=== PATIENT | male | born 1940 | race Caucasian/White ===

== ENCOUNTER 2022-02-26 11:24 | Inpatient (IN) ==
[~2022-02-26 11:24] MED LIST: Buffered Lidocaine 1% SYRIN 1 ml INTRADERM ONE; HYDROmorphone 1 MG/1 ML SYRINGE IV PRN; Lactated Ringers 1000 ml BAG 1,000 ML IV SCH; Naloxone 0.4 mg VIAL 0.4 mg/ml 1 ml VIAL IV PRN; Prochlorperazine 5 mg/ml 2 ml VIAL (10 mg) IV PRN
[2022-02-26] MEDS ORDERED: ceFAZolin 2 GM PREMIX 2 GM/50 ML BAG ONE (12:28)
[2022-02-26] MEDS ORDERED: ceFAZolin 1 GM in Dextrose 1 GM/50 ML BAG ONE (12:28)
[2022-02-26] MEDS ORDERED: Midazolam 2 mg/2 ml VIAL 1 mg/ml 2 ml VIAL (2 mg) ONE (13:54)
[2022-02-26] MEDS ORDERED: fentaNYL 100 mcg/2 ml 50 MCG/ML VIAL ONE ×2 (13:54→14:24)
[2022-02-26] MEDS ORDERED: ROPIVACAINE 5 MG/ML 30 ML BTL (0.5%) ONE ×2 (13:58→15:05)
[2022-02-26] MEDS ORDERED: Lactulose 30 ml UDC PO PRN (15:16)
[2022-02-26] MEDS ORDERED: Ondansetron ODT 4 mg TAB 4 MG TAB PO PRN (15:16)
[2022-02-26] MEDS ORDERED: Ondansetron 4 mg VIAL 2 MG/ML 2 ml VIAL IV PRN (15:16)
[2022-02-26] MEDS ORDERED: Morphine 2 MG/ML SYRINGE IV PRN (15:16)
[2022-02-26] MEDS ORDERED: Magnesium Hydroxide LIQ 30 ML UDC PO PRN (15:16)
[2022-02-26] MEDS ORDERED: Propofol 10 MG/ML 20 ML BTL ONE (15:38)
[2022-02-26] MEDS ORDERED: Lidocaine 2% PF 5 ML VIAL ONE (15:39)
[2022-02-26] MEDS ORDERED: ceFAZolin 1 GM ADVAN 1 GM in NS 0.9% 50 ML 50 ML IVPB SCH (16:00)
[2022-02-26] MEDS ORDERED: Dexamethasone IV 4 MG/ML VIAL 1 ml VIAL ONE (16:50)
[2022-02-26] MEDS ORDERED: Ondansetron 4 mg VIAL 2 MG/ML 2 ml VIAL ONE (16:50)
[2022-02-26] MEDS: Lactated Ringers 1000 ml BAG 1,000 ML IV SCH (19:00)
[2022-02-26] MEDS: Magnesium Hydroxide LIQ 30 ML UDC PO SCH (20:03)
[2022-02-27] MEDS: ceFAZolin 1 GM ADVAN 1 GM in NS 0.9% 50 ML 50 ML IVPB SCH ×3 (00:40→16:02)
[2022-02-27] MEDS: Lactated Ringers 1000 ml BAG 1,000 ML IV SCH (05:52)
[2022-02-27 06:46] LABS: Hematocrit 37 % (42-52); Hemoglobin 12.3 g/dL (14.0-18.0); Mean Platelet Volume 7.9 fL (7.4-10.4); Platelet Count 200 10^3/uL (150-450)
[2022-02-27 07:06] LABS: Calcium 8.5 mg/dL (8.6-10.3); eGFR CKD-EPI 74.3 (>60)
[2022-02-27] MEDS: Magnesium Hydroxide LIQ 30 ML UDC PO SCH (07:56)
[2022-02-27] MEDS ORDERED: Vitamin THERAPEUTIC TAB PO SCH (09:00)
[2022-02-27] MEDS ORDERED: CMCS: FLUTICAS/UMECLI/VILANT 100-62.5-25 MDI (NF) INH SCH (09:00)
[2022-02-27 12:05] VITALS: BP 137/69
== END 2022-02-27 18:30 | disposition home or self-care (01) | DRG 470 ==
LOC: AA 11:24 → INTOOBSV 11:24 → SSU 18:46
PROVIDERS: ADMIT Orthopaedic Surgery Adult Reconstructive Orthopaedic Surgery; ATTEND Orthopaedic Surgery Adult Reconstructive Orthopaedic Surgery

== ENCOUNTER 2023-11-06 14:00 | Observation (INO) ==
[2023-11-06] MEDS: Acetaminophen IV 1 GM/100ML 1,000 MG/100 ML BAG IV ONE (15:08)
[2023-11-06 15:23] LABS: ABS Lymphocytes 1.3 10^3/uL (1.0-4.8); ABS Monocytes 0.6 10^3/uL (0.0-1.1); ABS Neutrophils 7.4 10^3/uL (1.5-7.6); Eosinophil % 0.3 %; Hemoglobin 13.6 g/dL (13.2-16.3); Lymphocyte % 14.2 %; Mean Corpuscular Hemoglobin 29.6 pg (27-33); Mean Corpuscular Hgb Conc 33.9 g/dL (31-36); Mean Corpuscular Volume 87.4 fL (80-97); Mean Platelet Volume 7.9 fL (7.5-11.2); Platelet Count 213 10^3/uL (150-450); Red Blood Count 4.58 10^6/uL (4.06-5.63); Red Cell Distribution Width 15.7 % (12-17); White Blood Count 9.5 10^3/uL (3.6-10.2)
[2023-11-06] MEDS: Morphine 4 MG/ML VIAL (1 ml) IV ONE (15:37)
[2023-11-06] MEDS: Ondansetron 4 mg VIAL 2 MG/ML 2 ml VIAL IV ONE (15:37)
[2023-11-06 15:54] LABS: Albumin 4.5 g/dL (3.2-5.2); Albumin/Globulin Ratio 1.5 (1-3); C Reactive Protein 33.39 mg/L (<8.01); Calcium 9.1 mg/dL (8.6-10.3); Creatinine, Serum 1.83 mg/dL (0.67-1.17); Potassium 4.7 mmol/L (3.5-5.0); Total Bilirubin 0.8 mg/dL (0.2-1.0); Total Protein 7.5 g/dL (6.4-8.9); eGFR CKD-EPI 36.2 (>60)
[2023-11-06] MEDS: cefTRIAXone 2 gm/50 mL D5W 2 GM/50 ML BAG IV SCH (18:33)
[2023-11-06 22:27] LABS: Urine Appearance Clear; Urine Bilirubin Negative (Negative); Urine Blood Negative (Negative); Urine Color Light-Yellow; Urine Glucose 4+ (>=1000 mg/dL) (Negative); Urine Ketones Negative (Negative); Urine Nitrite Negative (Negative); Urine Protein Trace (Negative); Urine Urobilinogen Negative (Negative); Urine pH 5.5 (5.0-8.0)
[2023-11-07] MEDS ORDERED: fentaNYL 100 mcg/2 ml 50 MCG/ML VIAL IV ONE (07:26)
[2023-11-07] MEDS ORDERED: Lidocaine 2% PF 5 ML VIAL INJ ONE (07:26)
[2023-11-07] MEDS ORDERED: Propofol 10 MG/ML 20 ML BTL IV ONE (07:26)
[2023-11-07 07:39] LABS: ABS Lymphocytes 1.4 10^3/uL (1.0-4.8); ABS Monocytes 0.7 10^3/uL (0.0-1.1); ABS Neutrophils 6.7 10^3/uL (1.5-7.6); Eosinophil % 0.5 %; Hematocrit 37.5 % (38-53); Hemoglobin 12.6 g/dL (13.2-16.3); Lymphocyte % 15.8 %; Mean Corpuscular Hemoglobin 29.4 pg (27-33); Mean Corpuscular Hgb Conc 33.7 g/dL (31-36); Mean Corpuscular Volume 87.3 fL (80-97); Mean Platelet Volume 7.7 fL (7.5-11.2); Platelet Count 216 10^3/uL (150-450); Red Cell Distribution Width 15.7 % (12-17)
[2023-11-07] MEDS: FLUTICAS/UMECLI/VILANT 100-62.5-25 MDI (NF) INH SCH (07:55)
[2023-11-07 08:05] LABS: Calcium 8.2 mg/dL (8.6-10.3); Creatinine, Serum 2.08 mg/dL (0.67-1.17); Potassium 4.9 mmol/L (3.5-5.0)
[2023-11-07] MEDS ORDERED: Ondansetron 4 mg VIAL 2 MG/ML 2 ml VIAL IV PRN (08:15)
[2023-11-07] MEDS ORDERED: Metoclopramide 5 MG/ML VIAL (10 mg) IV PRN (08:15)
[2023-11-07] MEDS ORDERED: Naloxone 0.4 mg VIAL 0.4 mg/ml 1 ml VIAL IV PRN (08:15)
[2023-11-07] MEDS ORDERED: fentaNYL 100 mcg/2 ml 50 MCG/ML VIAL IV PRN (08:15)
[2023-11-07] MEDS: Buffered Lidocaine 1% SYRIN 1 ml INTRADERM ONE (08:49)
[2023-11-07] MEDS ORDERED: NS 0.45% 1000 ml BAG 1,000 ML IV SCH (09:00)
[2023-11-07] MEDS ORDERED: Lactated Ringers 1000 ml BAG 1,000 ML IV SCH (09:00)
[2023-11-07] MEDS ORDERED: Rocuronium 50 mg VIAL 10 mg/ml 5 ml VIAL (50 mg) IV ONE (09:50)
[2023-11-07] MEDS ORDERED: Sodium Chloride 0.9% 10 ML IV ONE (10:05)
[2023-11-07] MEDS ORDERED: Phenylephrine 40 mcg/mL 10mL (400mcg) SYRINGE INJ ONE (10:05)
[2023-11-07] MEDS ORDERED: Dexamethasone IV 4 MG/ML VIAL 1 ml VIAL IV SLOW PU ONE (10:08)
[2023-11-07] MEDS ORDERED: Ondansetron 4 mg VIAL 2 MG/ML 2 ml VIAL IV ONE (10:08)
[2023-11-07 14:46] VITALS: BP 134/70
[2023-11-18 16:04] LABS: Interpretation 100% Uric acid.
== END 2023-11-07 14:45 | disposition home or self-care (01) ==
LOC: ED 14:00 → EDHOLD 14:00 → SSU 15:55
PROVIDERS: ADMIT Internal Medicine; ATTEND Internal Medicine